=== PATIENT | female | born 1995 | race Caucasian/White ===

== ENCOUNTER 2021-04-02 05:35 | Emergency (ER) | payer BC ==
[~2021-04-02] VITALS: Ht 167.6 cm; Wt 54.4 kg
[2021-04-02 05:58] VITALS: BP 116/70
[2021-04-02] MEDS ORDERED: CLON0.5T PO (06:09)
== END 2021-04-02 06:17 | disposition home or self-care (01) ==
LOC: ER 05:35
DX: G47.00 Insomnia, unspecified (principal); Z79.899 Other long term (current) drug therapy